=== PATIENT | male | born 1995 | race Caucasian/White ===

== ENCOUNTER 2018-08-17 19:50 | Emergency (ER) | payer BC ==
--- NOTE | 2018-08-17 20:30 | EDM.PDOC ---
ED HPI GENERAL MEDICAL PROBLEM - General Chief Complaint: Upper Extremity Injury/Pain Stated Complaint: RT SHOULDER INJURY Time Seen by Provider: 08/17/18 20:20 Source of Information: Reports: Patient History Limitations: Reports: No Limitations - History of Present Illness INITIAL COMMENTS - FREE TEXT/NARRATIVE: Patient presents with complaints of right shoulder and scapular pain. he was playing basketball, dove for a loose ball and collided with another player. He is complaining of neck, back, and shoulder pain. He did not hit his head, no LOC, no chest pain and is not short of breath. Onset: Today, Sudden Duration: Intermittent Location: Reports: Chest, Back, Upper Extremity, Right Quality: Reports: Sharp Severity: Moderate Worsens with: Reports: Movement Associated Symptoms: Reports: No Other Symptoms Right Shoulder Pain Score (Numeric/FACES): 6 - Related Data Allergies Allergy/AdvReac Type Severity Reaction Status Date / Time azithromycin [From Zithromax] Allergy Rash Verified 08/17/18 20:11 Home Meds: Home Meds . [No Known Home Meds] 08/17/18 [History] Past Medical History Musculoskeletal History: Reports: Other (See Below) Other Musculoskeletal History: left shoulder and clavicle injury in the past Social & Family History - Tobacco Use Smoking Status *Q: Never Smoker Review of Systems - Review of Systems Review Of Systems: See Below Constitutional: Reports: No Symptoms Eyes: Reports: No Symptoms Ears: Reports: No Symptoms Nose: Reports: No Symptoms Mouth/Throat: Reports: No Symptoms Respiratory: Reports: No Symptoms Cardiovascular: Reports: No Symptoms GI/Abdominal: Reports: No Symptoms Genitourinary: Reports: No Symptoms Musculoskeletal: Reports: Neck Pain, Shoulder Pain, Back Pain Skin: Reports: No Symptoms Neurological: Reports: No Symptoms Psychiatric: Reports: No Symptoms ED EXAM, GENERAL - Physical Exam Exam: See Below Exam Limited By: No Limitations General Appearance: Alert, WD/WN, Mild Distress Eye Exam: Bilateral Eye: EOMI, Normal Inspection, PERRL Ears: Normal TMs Nose: Normal Inspection, Normal Mucosa, No Blood Throat/Mouth: Normal Inspection, Normal Lips, Normal Teeth, Normal Gums, Normal Oropharynx, Normal Voice, No Airway Compromise Head: Atraumatic, Normocephalic Neck: Normal Inspection, Supple, Non-Tender, Full Range of Motion Respiratory/Chest: No Respiratory Distress, Lungs Clear, Normal Breath Sounds, No Accessory Muscle Use, Chest Non-Tender Cardiovascular: Normal Peripheral Pulses, Regular Rate, Rhythm, No Edema, No Gallop, No JVD, No Murmur, No Rub Extremities: Limited Range of Motion (right shoulder painful with movement and palpation. Directly above AC joint. No visual misalignment, no crepitus on palpation) Neurological: Alert, Oriented, CN II-XII Intact, Normal Cognition, Normal Gait, Normal Reflexes, No Motor/Sensory Deficits Psychiatric: Normal Affect, Normal Mood Skin Exam: Warm, Dry, Intact, Normal Color, No Rash Course - Vital Signs Last Recorded V/S: Last Vital Signs Temp 36.3 C 08/17/18 20:11 Pulse 65 08/17/18 20:11 Resp 14 08/17/18 20:11 BP 128/57 L 08/17/18 20:11 Pulse Ox 98 08/17/18 20:11 - Orders/Labs/Meds Orders: Active Orders 24 hr Category Date Time Status Cervical Spine 2V or 3V [CR] Stat Exams 08/17/18 20:23 Ordered Shoulder Comp Rt [CR] Stat Exams 08/17/18 20:23 Ordered Thoracic Spine 3V [CR] Stat Exams 08/17/18 20:23 Ordered - Radiology Interpretation Free Text/Narrative:: No radiographic evidence of acute injury or fracture Departure - Departure Time of Disposition: 21:34 Disposition: Home, Self-Care 01 Condition: Good Clinical Impression: Sprain of shoulder - Discharge Information *PRESCRIPTION DRUG MONITORING PROGRAM REVIEWED*: Not Applicable *COPY OF PRESCRIPTION DRUG MONITORING REPORT IN PATIENT JUSTIN: Not Applicable Instructions: Cryotherapy, [id number], Shoulder Sprain Forms: ED Department Discharge Additional Instructions: Plan 1. Rest your shoulder and utilize ice, alternate ibuprofen with tylenol and elevate. 2. Follow up with a primary doctor for possible MRI related to any soft tissue tear or injury 3. No fractures seen on x-ray of neck, shoulder, or middle thoracic back 4. Tylenol dosing may be 1,000 mg every 6 hours and ibuprofen or motrin is 800 mg every 8 hours. These are maximum doses in a 24 hour period. 5. Call if you have any further questions or concerns - Problem List & Annotations (1) Sprain of shoulder SNOMED Code(s): 1902099 Code(s): S43.409A - UNSP SPRAIN OF UNSPECIFIED SHOULDER JOINT, INIT ENCNTR Status: Acute Priority: Low Current Visit: Yes Qualifiers: Encounter type: initial encounter Shoulder sprain type: unspecified sprain Laterality: right Qualified Code(s): S43.401A - Unspecified sprain of right shoulder joint, initial encounter - Problem List Review Problem List Initiated/Reviewed/Updated: Yes - My Orders Last 24 Hours: My Active Orders 08/17/18 20:23 Cervical Spine 2V or 3V [CR] Stat Shoulder Comp Rt [CR] Stat Thoracic Spine 3V [CR] Stat - Assessment/Plan Last 24 Hours: My Active Orders 08/17/18 20:23 Cervical Spine 2V or 3V [CR] Stat Shoulder Comp Rt [CR] Stat Thoracic Spine 3V [CR] Stat Assessment:: right shoulder sprain Plan: Plan 1. Rest your shoulder and utilize ice, alternate ibuprofen with tylenol and elevate. 2. Follow up with a primary doctor for possible MRI related to any soft tissue tear or injury 3. No fractures seen on x-ray of neck, shoulder, or middle thoracic back 4. Tylenol dosing may be 1,000 mg every 6 hours and ibuprofen or motrin is 800 mg every 8 hours. These are maximum doses in a 24 hour period. 5. Call if you have any further questions or concerns
--- NOTE | 2018-08-18 07:53 | CR ---
[id number] RAD/RAD Cervical Spine 2-3V EXAM: CERVICAL SPINE 3 VIEWS INDICATION: Fall with injury. COMPARISON: None. DISCUSSION: The vertebral bodies are normal in height and alignment without fracture or suspicious osseous lesion seen. The prevertebral soft tissues are normal in thickness. The disc heights are maintained without significant degenerative findings. IMPRESSION: 1. Negative exam. Jose Major MD 08/18/18 0752 Thank you for allowing us to participate in the care of your patient.
--- NOTE | 2018-08-18 07:54 | CR ---
[id number] RAD/RAD Shoulder Right 2V Min EXAM: RIGHT SHOULDER 3 VIEWS INDICATION: Fall with injury. COMPARISON: None. DISCUSSION: No fracture, dislocation or other osseous abnormality. IMPRESSION: 1. Negative exam. Jose Major MD 08/18/18 0753 Thank you for allowing us to participate in the care of your patient.
--- NOTE | 2018-08-18 07:55 | CR ---
[id number] RAD/RAD Thoracic Spine 3V EXAM: THORACIC SPINE 3 VIEWS INDICATION: Fall with injury. COMPARISON: None. DISCUSSION: The vertebral bodies are normal in height and alignment without fracture or suspicious osseous lesion seen. The intervertebral disc heights are maintained without significant degenerative changes seen. IMPRESSION: 1. Negative exam. Jose Major MD 08/18/18 0754 Thank you for allowing us to participate in the care of your patient.
== END 2018-08-17 21:39 | disposition home or self-care (01) ==
LOC: VM.ED 19:50
DX: S43.401A Unspecified sprain of right shoulder joint, initial encounter (principal); Z88.1 Allergy status to other antibiotic agents; W51.XXXA Accidental striking against or bumped into by another person, initial encounter; Y93.67 Activity, basketball
CPT/HCPCS: 72040; 72072; 73030-RT; 99283-25

== ENCOUNTER 2019-03-26 13:04 | Emergency (ER) | payer BC ==
--- NOTE | 2019-03-26 13:46 | CR ---
[id number] RAD/RAD Hand Right 3V Exam: RAD Hand Right 3V Indication:PAIN TO 2ND AND 3RD MCP DURING BASKETBALL Comparison: No prior imaging for comparison. Discussion: No fracture or dislocation. No AVN or erosive changes. Joint spaces are well-preserved. Impression: Normal examination of the hand. Finn Trejo MD 03/26/19 [phone] Thank you for allowing us to participate in the care of your patient.
--- NOTE | 2019-03-26 17:01 | EDM.PDOC ---
ED HPI GENERAL MEDICAL PROBLEM - General Chief Complaint: Upper Extremity Injury/Pain Stated Complaint: INJURED RT HAND Time Seen by Provider: 03/26/19 13:24 Source of Information: Reports: Patient History Limitations: Reports: No Limitations - History of Present Illness INITIAL COMMENTS - FREE TEXT/NARRATIVE: Pt. presents to ER with complaints of pain to his R hand. He states that he was attempting to pass a basketball and was blocked, pushing his 2nd and 3rd digit of the R hand backward. Denies any numbness/tingling in distal portion of the extremity. No injury to wrist, forearm, or rest of extremity. Denies any history of chronic pain in this area. Onset: Today Onset Date: 03/26/19 Location: Reports: Upper Extremity, Right Quality: Reports: Ache Right Hand Pain Score (Numeric/FACES): 5 - Related Data Allergies Allergy/AdvReac Type Severity Reaction Status Date / Time azithromycin [From Zithromax] Allergy Rash Verified 03/26/19 13:24 Home Meds: Home Meds . [No Known Home Meds] 08/17/18 [History] Past Medical History - Past Health History Medical/Surgical History: Denies Medical/Surgical History Musculoskeletal History: Reports: Other (See Below) Other Musculoskeletal History: left shoulder and clavicle injury in the past Social & Family History - Tobacco Use Smoking Status *Q: Never Smoker - Recreational Drug Use Recreational Drug Use: No Review of Systems - Review of Systems Review Of Systems: See Below Constitutional: Reports: No Symptoms Eyes: Reports: No Symptoms Ears: Reports: No Symptoms Nose: Reports: No Symptoms Mouth/Throat: Reports: No Symptoms Respiratory: Reports: No Symptoms Cardiovascular: Reports: No Symptoms GI/Abdominal: Reports: No Symptoms Genitourinary: Reports: No Symptoms Musculoskeletal: Reports: Hand Pain Skin: Reports: No Symptoms Neurological: Reports: No Symptoms Psychiatric: Reports: No Symptoms ED EXAM, GENERAL - Physical Exam Exam: See Below Exam Limited By: No Limitations General Appearance: Alert, WD/WN, No Apparent Distress Extremities: Normal Inspection, Joint Swelling, Limited Range of Motion, Redness , Other (mild erythema to area of 2nd and 3rd MCP joint of R hand. No crepitus or deformity. CMS intact.) Course - Vital Signs Last Recorded V/S: Last Vital Signs Temp 36.8 C 03/26/19 13:24 Pulse 73 03/26/19 13:24 Resp 14 03/26/19 13:24 BP 126/84 03/26/19 13:24 Pulse Ox 99 03/26/19 13:24 - Radiology Interpretation Free Text/Narrative:: No acute pathology on radiograph of the R hand. Departure - Departure Time of Disposition: 14:30 Disposition: Home, Self-Care 01 Clinical Impression: Sprain of hand, right - Discharge Information Instructions: RICE Therapy for Routine Care of Injuries, [id number] Referrals: PCP,None [Primary Care Provider] - Forms: ED Department Discharge Additional Instructions: Home to rest. Ice painful areas for 10-15 min every hour Ibuprofen 200mg 3 tabs every 6 hours as needed for pain Follow-up in clinic in 7-10 days if still having pain Sepsis Event Note - Evaluation Sepsis Screening Result: No Definite Risk - Focused Exam Vital Signs: Vital Signs Temp Pulse Resp BP Pulse Ox 03/26/19 13:24 36.8 C 73 14 126/84 99 Date Exam was Performed: 03/26/19 Time Exam was Performed: 16:56 - Assessment/Plan Plan: Home to rest. Ice painful areas for 10-15 min every hour Ibuprofen 200mg 3 tabs every 6 hours as needed for pain Follow-up in clinic in 7-10 days if still having pain
== END 2019-03-26 13:56 | disposition home or self-care (01) ==
LOC: VM.ED 13:04
DX: S63.91XA Sprain of unspecified part of right wrist and hand, initial encounter (principal); Z88.1 Allergy status to other antibiotic agents; X50.0XXA Overexertion from strenuous movement or load, initial encounter; Y93.67 Activity, basketball
CPT/HCPCS: 73130-RT; 99283-25